=== PATIENT | male | born 1950 | race Caucasian/White ===

== ENCOUNTER → 2018-04-11 | Outpatient (CLI) | payer MEDICARE ==
--- NOTE | 2018-04-11 20:34 | CONS ---
CONSULTATION DATE OF SERVICE: 04/11/2018 68-year-old gentleman has [facility] for obstructive sleep apnea- hypopnea syndrome. HISTORY OF PRESENT ILLNESS SLEEP WAKE EVALUATION: Patient has been diagnosed with obstructive sleep apnea about 1 and half year ago in another institution by home sleep apnea test. After that, patient was started on auto PAP machine and continued to use his machine until the present time. Recently he developed some problems with his sinuses. No snoring with the machine, although. SLEEP SCHEDULE: His sleep schedule on weekdays from 11:00 p.m. to 7 a.m. and on weekends from midnight until 9:00 a.m. FALLING ASLEEP: Sometimes he has problem with falling asleep, has TV set in bedroom. DURING SLEEP: He wakes up from sleep once and may have difficulties to pay attention during the day worry about his sleep. DURING THE DAY/SLEEP WAKE EVALUATION: Has problem with concentration. [place] Sleepiness Scale is 6. PAST MEDICAL HISTORY: Positive for hypertension and depression. PAST SURGICAL HISTORY: Appendectomy. MEDICATIONS: 1. Hydrochlorothiazide. 2. Wellbutrin. SOCIAL HISTORY: Negative for smoking. Alcohol consumption occasional. FAMILY HISTORY: Hypertension, sleep apnea. REVIEW OF SYSTEMS: Sinus problems recently. PHYSICAL EXAM: GENERAL: gentleman without distress. VITAL SIGNS: BP 163/77, HR 72, RR 16, height 5 feet 11 inches, weight 268.2, body mass index 37.3, temperature 98.3, oxygen saturation at room air 95%. Oropharynx extremely low position of soft palate. Nasal septum deviation. Wide neck 16-1/2 inches in circumference. Neck: Supple, no JVD. Thyroid is not palpable. LUNGS: Clear to percussion and to auscultation. Good air exchange. No wheezing or rhonchi. HEART: S1, S2 regular. No murmurs, gallops, or rubs. ABDOMEN : Slightly obese. Soft and nontender. Bowel sounds are present. No organomegaly appreciated. EXTREMITIES No clubbing or cyanosis. SERVER ASSISTANT Awake, alert, and oriented X3. Cranial nerves 2 to 7 intact. There is no fasciculation or atrophy. noted. No focal deficits observed. I checked the patient CPAP unit. It is on automatic regimen pressure 5-20 cm of water. Average pressure 13.3 cm of water. Apnea-hypopnea index, 1.1. Ramp is on automatic regimen. IMPRESSION: 1. Obstructive sleep apnea-hypopnea syndrome. The patient is on treatment with CPAP every night. Recently developed sinus problems and awakenings from sleep. Low position of soft palate, wide neck, obstructive sleep apnea-hypopnea syndrome. 2. Obesity. 3. Hypertension. 4. Depression. 5. Status post appendectomy. PLAN: 1. I will decrease maximal pressure in machine to 13 cm of water. 2. I will change ramp to 30 minutes time. 3. We will try a different style of the mask Dream Wear full-face mask. 4. Patient will continue to use CPAP equipment every night. 5. Losing weight. 6. Sleep hygiene with regular time in bed for at least 8 hours. Thank you very much for referring this patient for consultation. Sincerely, Hugo Shultz MD, PhD, FAASM Diplomat of [place] [employer] [place] [employer] [facility] [place] MMODL / IJN: [id number] /
== END | disposition home or self-care (01) ==
LOC: SLEEP 16:34
PROVIDERS: ATTEND Internal Medicine
DX: G47.33 Obstructive sleep apnea (adult) (pediatric) (principal); J34.89 Other specified disorders of nose and nasal sinuses; J34.2 Deviated nasal septum; I10 Essential (primary) hypertension; F32.9 Major depressive disorder, single episode, unspecified; Z99.89 Dependence on other enabling machines and devices; E66.9 Obesity, unspecified; Z68.37 Body mass index [BMI] 37.0-37.9, adult; Z90.49 Acquired absence of other specified parts of digestive tract; Z83.6 Family history of other diseases of the respiratory system
CPT/HCPCS: 99211

== ENCOUNTER 2020-09-02 14:47 | Emergency (ER) | payer MEDICARE, OTHER ==
[2020-09-02 14:52] VITALS: BP 149/89; PULSE 66; RESP 18; TEMP 98.7
[2020-09-02] MEDS ORDERED: PROPARACAINE 0.5% OPHTH DROPS 15 ML BTL RIGHT EYE STA (15:19)
--- NOTE | 2020-09-02 15:19 | ED ---
Eye Problem HPI - General Chief complaint: Eye Problems Stated complaint: RT eye injury Time Seen by Provider: 09/02/20 15:06 Source: patient Mode of arrival: ambulatory Limitations: no limitations - History of Present Illness Initial comments: 70-year-old white male, alert and oriented 4, presents to the emergency room with complaints of right eye redness. Patient denies any trauma. States he woke up this morning he was fine when he went in the house today just for work he noticed that the eye was red. Patient denies any previous head injuries or eye problems or eye surgeries. Patient denies any visual changes no foreign body sensation and no loss of vision. There is no drainage there is no tearing there is no itching there is no swelling. Patient denies pain with movement of the eyeball. Patient denies nasal congestion or sinus pain. Denies any cough or vomiting. Patient was working in the garage with some minor but denies any foreign body patient has a history of hypertension and is not on any blood thinners. MD chief complaint: eye redness -: hour(s) Onset Description: sudden Location: right eye Place: home If Injury: none Eye Symptoms: other Severity scale (1-10): 0 (Subconjunctival hemorrhage) Associated Symptoms: none Treatments Prior to Arrival: none - Related Data Previous Rx's Medication Instructions Recorded Erythromycin Ophth Oint [Romycin 1 applic RIGHT EYE QID 5 Days #1 gm 09/02/20 Ophth Oint] Allergies Allergy/AdvReac Type Severity Reaction Status Date / Time latex AdvReac Unknown Verified 09/02/20 14:51 Review of Systems ROS Statement: Those systems with pertinent positive or pertinent negative responses have been documented in the HPI. ROS Other: All systems not noted in ROS Statement are negative. Past Medical History Past Medical History: No Reported History History of Any Multi-Drug Resistant Organisms: None Reported Past Surgical History: Appendectomy Past Psychological History: No Psychological Hx Reported Past Alcohol Use History: None Reported Past Drug Use History: None Reported General Exam Limitations: no limitations General appearance: alert, in no apparent distress Head exam: Present: atraumatic, normocephalic, normal inspection Eye exam: Present: PERRL, EOMI, conjunctival injection, other (Subconjunctival hemorrhage. The right eye) Pupils: Present: normal accommodation Expanded Eyelids: Normal Inspection: Bilateral Pupils: Regular, Round: Bilateral, Reactive: Bilateral Sclera/Conjunctival: Normal Inspection: Left, Hemorrhage: Right ENT exam: Present: normal exam, normal oropharynx, mucous membranes moist Neck exam: Present: normal inspection, full ROM. Absent: tenderness, meningismus, lymphadenopathy, thyromegaly Respiratory exam: Present: normal lung sounds bilaterally. Absent: respiratory distress, wheezes, rales, rhonchi, stridor Cardiovascular Exam: Present: regular rate, normal rhythm, normal heart sounds. Absent: systolic murmur, diastolic murmur, rubs, gallop, clicks GI/Abdominal exam: Present: soft, normal bowel sounds. Absent: distended, tenderness, guarding, rebound, rigid Extremities exam: Present: normal inspection, full ROM, normal capillary refill. Absent: tenderness, pedal edema, joint swelling, calf tenderness Back exam: Present: normal inspection Neurological exam: Present: alert, oriented X3, CN II-XII intact Psychiatric exam: Present: normal affect, normal mood Skin exam: Present: warm, dry, intact, normal color. Absent: rash, cyanosis, diaphoretic, petechiae Course Vital Signs 09/02/20 14:49 Temperature 98.7 F Pulse Rate 66 Respiratory 18 Rate Blood Pressure 149/89 O2 Sat by Pulse 99 Oximetry Medical Decision Making - Medical Decision Making Proparacaine with fluorescein used and there is a corneal abrasion at 3 oclock. Patient will be treated with erythromycin ophthalmic ointment half-inch 4 times a day. Patient will be referred to ophthalmology. Case discussed with Dr. Johnson who was agreeable Disposition Clinical Impression: Corneal abrasion, Subconjunctival hemorrhage of right eye Disposition: HOME SELF-CARE Condition: Good Instructions (If sedation given, give patient instructions): Abrasion (ED) Additional Instructions: Use medication as prescribed and follow-up with ophthalmology next week. Return if pain or visual disturbance. Prescriptions: Erythromycin Ophth Oint [Romycin Ophth Oint] 1 applic RIGHT EYE QID 5 Days #1 gm Is patient prescribed a controlled substance at d/c from ED?: No Referrals: Raf Neves DO [Primary Care Provider] - 1-2 days Time of Disposition: 15:58
[2020-09-02] MEDS ORDERED: FLUORESCEIN STRIPS 1 MG STRIP RIGHT EYE ONE (15:38)
== END 2020-09-02 16:09 | disposition home or self-care (01) ==
LOC: EC 14:47
DX: S05.01XA Injury of conjunctiva and corneal abrasion without foreign body, right eye, initial encounter (principal); H11.31 Conjunctival hemorrhage, right eye; I10 Essential (primary) hypertension; X58.XXXA Exposure to other specified factors, initial encounter; Y92.59 Other trade areas as the place of occurrence of the external cause; Y99.0 Civilian activity done for income or pay
CPT/HCPCS: 99283

== ENCOUNTER → 2022-11-27 | Outpatient (CLI) | payer OTHER, MEDICARE | END | disposition home or self-care (01) | LOC: LABPAT 10:27 | DX: Z01.812 Encounter for preprocedural laboratory examination (principal); Z22.322 Carrier or suspected carrier of Methicillin resistant Staphylococcus aureus; M17.11 Unilateral primary osteoarthritis, right knee | CPT/HCPCS: 87070 ==

== ENCOUNTER 2022-12-12 08:54 | Day surgery (SDC) | payer OTHER ==
[2022-12-06 11:16] VITALS: BMI 29.1
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
[~2022-12-12 08:54] MED LIST: ACETAMINOPHEN TAB 500 MG TAB PO PRN; MELOXICAM 7.5 MG TAB PO PRN; TRANEXAMIC 1,000 MG/100ML-NACL 1,000 MG in SALINE 1 100ML.BAG IVPB PRN
[2022-12-12] MEDS ORDERED: droPERidol 5 MG/2 ML VIAL IVP ONE (09:36)
[2022-12-12] MEDS ORDERED: LACTATED RINGERS 1,000 ML IV SCH (09:36)
[2022-12-12] MEDS ORDERED: ONDANSETRON 4 MG/2 ML VIAL IVP ONE (09:36)
[2022-12-12] MEDS ORDERED: HYDROmorphone 0.5 MG/0.5 ML SYRINGE IVP PRN ×2 (09:36→12:53)
[2022-12-12] MEDS ORDERED: LIDOCAINE 1% (10MG/ML) FOR IV START INTRADERMA PRN (09:36)
[2022-12-12] MEDS: DEXAMETHASONE SOD PHOSPHATE 4 MG/ML 1 ML VIAL IV ONE ×2 (09:56→10:15)
[2022-12-12] MEDS ORDERED: fentaNYL (PF) 50 MCG/ML 2 ML AMP IVP ONE ×2 (10:12→10:13)
[2022-12-12] MEDS ORDERED: MIDAZOLAM 2 MG/2 ML VIAL IVP ONE ×2 (10:12→10:13)
--- NOTE | 2022-12-12 10:50 | P.ANPRN ---
Procedure Note - Anesthesia - Nerve Block Performed Right Adductor Canal Infusion Time Out Performed: Yes (1017) Date of Procedure: 12/12/22 Procedure Start Time: :18 Procedure Stop Time: :24 Location of Patient: PreOp Indication: Acute Post-Operative Pain, Requested by Surgeon Specifically requested for management of pain by : Sergio Jason Sedation Type: Sedate with meaningful contact maintained Preparation: Sterile Prep, Sterile Dressing Position: Supine Catheter Depth at Skin (cm): 6 Catheter: Indwelling Needle Types: Pajunk Needle Gauge: 18 Ultrasound used to visualize needle placement: Yes Ultrasound used to observe medication spread: Yes Injectate: 0.5% Ropivacaine (see comment for volume) (15cc + 10cc nacl pf) Blood Aspirated: No Pain Paresthesia on Injection Noted: No Resistance on Injection: Normal Image Stored and Saved: Yes Events: Uneventful and Well Tolerated
--- NOTE | 2022-12-12 10:51 | P.ANPRN ---
Procedure Note - Anesthesia - Nerve Block Performed Right iPack Single Time Out Performed: Yes (1017) Date of Procedure: 12/12/22 Procedure Start Time: 10:25 Procedure Stop Time: 10:30 Location of Patient: PreOp Indication: Acute Post-Operative Pain, Requested by Surgeon Specifically requested for management of pain by DrShilo: Sergio Jason Sedation Type: Sedate with meaningful contact maintained Preparation: Sterile Prep Position: Supine Catheter: None Needle Types: Pajunk Needle Gauge: 21 Ultrasound used to visualize needle placement: Yes Ultrasound used to observe medication spread: Yes Injectate: 0.5% Ropivacaine (see comment for volume) (15cc + 10cc nacl pf) Blood Aspirated: No Pain Paresthesia on Injection Noted: No Resistance on Injection: Normal Image Stored and Saved: Yes Events: Uneventful and Well Tolerated
[2022-12-12] MEDS ORDERED: TRANEXAMIC 1,000 MG/100ML-NACL PREMIX BAG ONE (11:15)
[2022-12-12] MEDS ORDERED: ROPIVACAINE 5 MG/ML 30 ML VIAL ONE (11:15)
[2022-12-12] MEDS ORDERED: PROPOFOL 10 MG/ML 20 ML VIAL IV ONE (11:15)
[2022-12-12] MEDS ORDERED: MIDAZOLAM 2 MG/2 ML VIAL ONE (11:15)
[2022-12-12] MEDS ORDERED: fentaNYL (PF) 50 MCG/ML 2 ML AMP ONE (11:15)
[2022-12-12] MEDS ORDERED: ceFAZolin 3,000 MG in SODIUM CHLORIDE 0.9% IRRIGATIO 3,000 ML IRRIGATION ONE (11:44)
[2022-12-12] MEDS ORDERED: LACTATED RINGERS 1,000 ML IV ONE (12:30)
[2022-12-12] MEDS ORDERED: MAGNESIUM HYDROXIDE 2,400 MG/30 ML CUP PO PRN (12:53)
[2022-12-12] MEDS ORDERED: HYDROcodone/APAP 5-325MG 1 EACH TAB PO PRN (12:53)
[2022-12-12] MEDS ORDERED: NALOXONE 0.4 MG/ML 1 ML VIAL IV PRN (12:53)
--- NOTE | 2022-12-12 13:20 | P.OP ---
Date of Procedure: 12/12/22 Preoperative Diagnosis: Right knee severe tricompartmental osteoarthrosis Postoperative Diagnosis: Same Procedure(s) Performed: Right total knee arthroplastycementedposterior stabilized Implants: Depuy Attune size 7 cemented femoral component, size 7 cemented tibial component, 9 mm articular surface, 38 mm cemented patellar component. This is a posterior stabilized implant. Anesthesia: regional, spinal Surgeon: Sergio Jason Test Data Developer #1: Hu Gardner Estimated Blood Loss (ml): 50 Pathology: none sent Condition: stable Disposition: PACU Indications for Procedure: The patient is a 72-year-old male who presents with progressive right knee pain secondary to osteoarthrosis despite conservative measures. A discussion of the risks and benefits of operative intervention versus continued conservative measures was made with the patient. He opted to proceed with surgery. Operative risks to include infection, neurovascular injury, development of blood clots, fracture, possible component loosening/failure and need for subsequent procedures was discussed. Informed consent was obtained. Operative Findings: As below Description of Procedure: The patient was brought to the operating room, and after induction of spinal anesthesia the right lower extremity was prepped and draped in a normal fashion. The tourniquet was inflated to 270 mm marker. A longitudinal incision extending 3 finger breaths above the superior pole of patella extending to the medial aspect the tibial tubercle was then made. The skin and subcutaneous tissues were divided sharply. Electrocautery was used for hemostasis. A medial parapatellar arthrotomy was performed. The medial soft tissues to include the superficial and deep portions of the medial collateral ligament were elevated subperiosteally. The patella was everted. A portion of the retropatellar fat pad was excised sharply. The anterior cruciate ligament was sacrificed. Blunt retractors were placed. A starting hole was made in the distal femur 1 cm anterior to the posterior cruciate ligament origin. An intramedullary femoral guide was then inserted planning on 5 valgus distal cut with 9 mm distal resection. The cutting block was pinned in place. The distal cut was then made. The posterior referencing sizing guide was utilized. I felt size 7 was most appropriate. 3 of external rotation was built into the system and verified off the trans-epicondylar axis and the posterior condyles. The cutting block was pinned in place. The anterior, posterior, and chamfer cuts then made. Bone fragments were removed. The intercondylar guide was placed and the notch cut was made with a sagittal saw. The bone block was removed in one fragment. The trial component was then placed. There is good anterior to posterior and medial to lateral fit. The distal peg holes were drilled. The trial component was removed. Attention was then paid towards preparing the proximal tibia. An extra medullary guide was utilized in line with the tibial shaft and second metatarsal distally. I planned on 2 mm resection from the medial compartment. The cutting block was pinned in place. The proximal tibial cut was then made. The bone was removed in one fragment. The remnants of the medial and lateral menisci were excised at the capsular junction with electrocautery. The tibia sized most appropriately at size 7. The trial femoral and tibial components were placed along with a 9 mm articular surface. I was able to obtain full flexion and extension with internal and external rotation. After several fl exion and extension cycles, the tibial rotation was marked with electrocautery line with the medial one third of the tibial tubercle. Attention was then paid towards preparing the patella. A patella reamer was utilized planning on 14 mm of residual bone stock. A good flush cut was made. The patella sized most appropriately 38 mm. The peg holes were drilled. The trial components placed. I had good patellofemoral tracking with no hands technique. The trial components were then removed. The tibia was prepared in the appropriate rotation with appropriate drill and keel punch. The posterior osteophytes were removed with a curved osteotome. The flexion and extension gaps were checked and felt to be symmetric at 9 mm. A trial components were then removed. The bony surfaces were prepared with pulsatile lavage and dried. The tibial component was then cemented place was fully seated. Excess cement was removed. The femoral component cemented place and was fully seated. Excess cement was removed. The trial 9 mm articular surface was placed and the knee was put in full extension. The patella component was cemented place. After the cement had sufficiently hardened, the knee was again taken through a range of motion. Again I was able to obtain full flexion and extension with varus and valgus stress. The trial 9 mm articular surface was removed and the final one insert ed. This was fully seated. Care was taken to avoid any soft tissue interposition. Pulsatile lavage was again utilized. The medial parapatellar arthrotomy was closed with #2 Ethibond suture. The tourniquet was deflated with approximately 60 minutes total tourniquet time. Final hemostasis was obtained with the cautery. There was minimal bleeding therefore a deep drain was not placed. The subcutaneous tissues were reapproximated with interrupted 2-0 Vicryl sutures. The skin was reapproximated with 3-0 subcuticular strata fix suture. Skin tape and adhesive was applied. A sterile dressing was applied. The patient was awoken from sedation and transferred to recovery room in good condition. Blood loss was estimated at 50 mL. No complications were incurred. Sponge and needle counts were correct at the end of the case. Hu BOLDEN assisted during the major components of this case to include exposure, bone resection, implantation, and closure.
[2022-12-12] MEDS ORDERED: ROPIVACAINE 1,100 MG, SODIUM CHLORIDE 0.9% 500 ML 330 ML, EMPTY PAIN BALL 1 EACH MISCELLANE PRN ×2 (13:25)
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
[2022-12-12] MEDS: HYDROcodone/APAP 7.5-325MG 1 EACH TAB PO PRN ×2 (16:46→22:45)
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
[2022-12-12] MEDS: buPROPion 75 MG TAB PO SCH (20:35)
[2022-12-12] MEDS ORDERED: SENNOSIDES-DOCUSATE SODIUM 1 EACH TAB PO SCH (21:00)
[2022-12-13] MEDS: HYDROmorphone 0.5 MG/0.5 ML SYRINGE IVP PRN ×2 (00:30→03:57)
[2022-12-13] MEDS: hydrOXYzine pamoate 25 MG CAP PO PRN ×3 (00:30→14:43)
--- NOTE | 2022-12-13 06:25 | P.PN ---
Progress Note - Text Progress Note Date: 12/13/22 (0616) Anesthesiology Postop day 1 status post total knee arthroplasty with adductor canal catheter. Patient doing well. VAS 6 out of 10. Gross strength intact in lower extremity. Afebrile. Denies alterations in sensorium. Catheter site intact. Heart regular rate Lungs nonlabored Abdomen nondistended Assessment: Postop day 1 status post total knee arthroplasty with adductor canal catheter Plan: 1.All questions answered. Maintain catheter 2 more days with patient removal at home. Instructions to be given at discharge. 2.This note was dictated using [employer] software. Please be advised there is a potential for misspellings or errors in carton forming machine adjuster.
[2022-12-13 07:56] LABS: African American GFR (CKD) >90 (>60 ml/min/1.73 sqM); Anion Gap 5 mmol/L; Blood Urea Nitrogen 21 mg/dL (9-20); Calcium 7.9 mg/dL (8.4-10.2); Carbon Dioxide 26 mmol/L (22-30); Chloride 104 mmol/L (98-107); Glucose 131 mg/dL (74-99); Non-African American GFR(CKD) >90 (>60 ml/min/1.73 sqM); Potassium 3.8 mmol/L (3.5-5.1); Sodium 135 mmol/L (137-145)
[2022-12-13 08:16] VITALS: BP 116/66; PULSE 91; RESP 18; TEMP 97.8
[2022-12-13] MEDS: HYDROcodone/APAP 7.5-325MG 1 EACH TAB PO PRN ×2 (08:36→12:45)
[2022-12-13] MEDS: buPROPion 75 MG TAB PO SCH (08:37)
[2022-12-13] MEDS ORDERED: RIVAROXABAN 10 MG TAB PO SCH (09:00)
[2022-12-13] MEDS ORDERED: hydroCHLOROthiazide 12.5 MG CAP PO SCH (09:00)
[2022-12-13] MEDS ORDERED: NON FORMULARY DRUG (Omega-3 Fatty Acids [Omega-3] 1,000 MG Capsule) PO SCH (09:00)
[2022-12-13] MEDS ORDERED: MULTIVITAMINS, THERA 1 EACH TAB PO SCH (09:00)
[2022-12-13] MEDS ORDERED: DOXAZOSIN 2 MG TAB PO SCH (09:00)
[2022-12-13] MEDS ORDERED: CALCIUM CARB-VIT D 500 MG-5 MCG TAB PO SCH (09:00)
[2022-12-13] MEDS ORDERED: ASCORBIC ACID 500 MG TAB PO SCH (09:00)
--- NOTE | 2022-12-13 09:44 | P.DS ---
Providers Date of admission: 12/12/2022 Expected date of discharge: 12/13/22 Attending physician: Sergio Jason Consults: 12/12/22 12:53 Consult Physician Routine Consulting Provider: Clemencia Bangura Consult Reason/Comments: medical management s/p right total knee arthroplasty Do you want consulting provider notified?: Yes Primary care physician: [facility] Hospital Course: Date of admission: 12/12/2022 Date of discharge: 12/13/2022 Admission diagnosis: Right knee osteoarthritis Discharge diagnosis: Same Attending physician: Dr. Jason Surgical procedures: Right total knee arthroplasty Brief history: Patient is a 72-year-old male with a history of progressive primary right knee osteoarthritis. At this point patient has failed conservative treatment measures and has opted to proceed with a elective right total knee arthroplasty. Hospital course: Details of patient's surgery can be found in operative report. Patient tolerated the procedure well and was subsequently transported to orthopedic floor. Patient's orthopeidc and medical care was provided daily. Patient had daily laboratory tests performed for evaluation of overall blood counts. Patient had daily physical therapy to include strengthening range of motion as well as education with walker ambulation. Patient was treated with Xarelto for their postoperative DVT prophylaxis during their inpatient stay. Patient was noted to have a relatively uneventful postoperative course. Patient reported satisfactory pain control with oral pain medications by postoperative day 1. Patient showed satisfactory progress with physical therapy. Patient moved steadily through the program and had no difficulty meeting the goals by postoperative day 1. Given patient's otherwise satisfactory course and having met physical therapy goals, plan is to discharge patient home with health services on postoperative day 1. Discharge condition/disposition: Patient will be discharged home without servi emanuel in stable condition. Discharge medications: Instructions are given on resumption of patient's normal daily medications per primary care recommendation, in addition patient will be prescribed [place]; senna; eliquis 2.5 mg BID x 2 weeks. Discharge instructions: 1. Wound care and infection precautions, keep incision dry and covered while showering, no lotions, creams, moisturizers. No soaking, tubs, pools, hottubs. Do not scrub over the incision. 2. Weight-bear as tolerated with walker / cane until follow-up. 3. Ice and elevate when necessary. Do not exceed 20 minutes per hour with ice pack. 4. Utilize compression sleeve until seen at first follow up appointment. 5. Visiting nursing care. 6. Home physical therapy including home CPM. 7. Pain meds and anticoagulants per prescription. 8. Pain medication has potential to cause constipation. Increase oral fluid and fiber intake. Contact primary care provider if you have not had a bowel movement within 48 hours after discharge 9. No anti-inflammatory medication until discussed at first post operative visit, this including Motrin, Aleve, Mobic, Diclofenac. 10. Follow up in office at 2 weeks postop with Osmin Short PA-C / Hu Gardner PA-C 11. Follow up with your primary care doctor 7-10 days after discharge. 12. Contact [facility] with any questions, . Assessment: Right knee osteoarthritis Procedures: Right total knee arthroplasty Patient Condition at Discharge: Good Plan - Discharge Summary Discharge Rx Participant: Yes New Discharge Prescriptions: New Apixaban [Eliquis] 2.5 mg PO BID #60 tab HYDROcodone/APAP 7.5-325MG [[place] 7.5] 1 - 2 each PO Q6HR PRN #36 tab PRN Reason: Pain Sennosides/Docusate Sodium [Senna Plus 8.6-50 mg Softgel] 1 each PO DAILY #20 capsule Continue Multivitamins, Thera [Multivitamin (formulary)] 1 tab PO DAILY buPROPion [Wellbutrin] 75 mg PO BID Doxazosin [Cardura] 2 mg PO DAILY hydroCHLOROthiazide 12.5 mg PO DAILY Farrell-3 Fatty Acids [Farrell-3] 1,000 mg PO DAILY Calcium Carb-Vit D 250Mg-125Un [Oscal 250+D 3.125 Mcg (125 Iu)] 1 each PO DAILY Ascorbic Acid [Vitamin C] 1,000 mg PO DAILY No Action Naproxen 250 mg PO Q6H PRN PRN Reason: Pain Discharge Medication List Ascorbic Acid [Vitamin C] 1,000 mg PO DAILY 12/06/22 [History] Calcium Carb-Vit D 250Mg-125Un [Oscal 250+D 3.125 Mcg (125 Iu)] 1 each PO DAILY 12/06/22 [History] Doxazosin [Cardura] 2 mg PO DAILY 12/06/22 [History] Multivitamins, Thera [Multivitamin (formulary)] 1 tab PO DAILY 12/06/22 [History] Naproxen 250 mg PO Q6H PRN 12/06/22 [History] Farrell-3 Fatty Acids [Farrell-3] 1,000 mg PO DAILY 12/06/22 [History] buPROPion [Wellbutrin] 75 mg PO BID 12/06/22 [History] hydroCHLOROthiazide 12.5 mg PO DAILY 12/06/22 [History] Apixaban [Eliquis] 2.5 mg PO BID #60 tab 12/13/22 [Rx] HYDROcodone/APAP 7.5-325MG [[place] 7.5] 1 - 2 each PO Q6HR PRN #36 tab 12/13/22 [Rx] Sennosides/Docusate Sodium [Senna Plus 8.6-50 mg Softgel] 1 each PO DAILY #20 capsule 12/13/22 [Rx] Follow up Appointment(s)/Referral(s): Hu Gardner, YAZAN [PHYSICIAN [employer]FETERIA TEAM LEADER] - 2 Weeks Patient Instructions/Handouts: Knee Replacement (DC) Activity/Diet/Wound Care/Special Instructions: Orthopedic Discharge Instructions: 1. Wound care and infection precautions, keep incision dry and covered while showering, no lotions, creams, moisturizers. No soaking, pools, hot tubs. Do not scrub over incision. 2. Weight-bear as tolerated with walker / cane until follow-up. 3. Ice and elevate when necessary. Do not exceed 20 minutes per hour with ice pack. 4. Utilize compression sleeve until seen at first follow up appointment. 5. Pain meds and anticoagulants per prescription. 6. Pain medication has potential to cause constipation. Increase oral fluid and fiber intake. Contact primary care provider if you have not had a bowel movement within 48 hours after discharge. 7. No anti-inflammatory medication until discussed at first post operative visit, this including Motrin, Aleve, Mobic, Diclofenac. 8. Follow up in office at 2 weeks postop with Osmin Short PA-C / Hu Gardner PA-C 9. Follow up with your primary care doctor 7-10 days after discharge. 10. Contact [facility] with any questions, . Keep incision clean, dry, intact. While showering, cover fusion tape with Saran wrap. Keep fusion tape on until follow-up appointment in office in 2 weeks. Discharge Disposition: HOME WITH HOME HEALTH SERVICES
--- NOTE | 2022-12-13 09:55 | P.PN ---
Subjective Progress Note Date: 12/13/22 Principal diagnosis: Right knee osteoarthritis Patient seen at bedside this morning sitting up in chair icing his right knee. Patient says he is doing well this morning. Patient says he has been up walking around the room using walker and has urinated several times. Patient says he has not had a bowel movement yet, however, patient says he has been passing gas. Patient says he is looking forward to going home later today. Patient is eager to work with physical therapy later this morning. Patient denies any other changes. Patient denies chest pain, fever, shortness breath, nausea, change in vision, loss of bowel/bladder control. Objective - Vital Signs Vital signs: Vital Signs Temp 97.8 F 12/13/22 07:01 Pulse 91 12/13/22 07:01 Resp 18 12/13/22 07:01 BP 116/66 12/13/22 07:01 Pulse Ox 94 L 12/13/22 07:01 FiO2 Intake & Output 12/12/22 12/13/22 12/13/22 18:59 06:59 18:59 Intake Total 751 Output Total 50 Balance 701 Weight 107 kg Intake: IV 751 Output: Estimated Blood Loss 50 Other: Voiding Method Toilet # Voids 1 2 # Bowel Movements 1 - Exam Right knee: Incision is clean, dry, and intact. The exofin fusion tape is in good condition. There is minimal soft tissue swelling and ecchymosis surrounding the medial and lateral aspects of the incision. Calf is soft, no tenderness with palpation. Plantar flexion, dorsiflexion, EHL, FHL are intact. Sensory exam to light touch throughout the extremity is intact, dorsal pedis pulses 2+. - Labs CBC & Chem 7: 12/13/22 06:48 Labs: Abnormal Lab Results - Last 24 Hours (Table) 12/13/22 Range/Units 06:48 Sodium 135 L (137-145) mmol/L BUN 21 H (9-20) mg/dL Glucose 131 H (74-99) mg/dL Calcium 7.9 L (8.4-10.2) mg/dL Assessment and Plan Assessment: Right knee osteoarthritis - Postop day 1 status post right total knee arthroplasty Plan: 1. Right knee osteoarthritis - right total knee arthroplasty performed yesterday, 12/12/2022. Patient stable at bedside this morning. Patient does have a walker at home. Plan for discharge home today with health services pending PT/OT evaluation. 2. Appreciate medical management 3. Pain management - [place] 4. DVT prophylaxis - eliquis 2.5 mg BID x 2 weeks once home 5. GI prophylaxis - senna 6. PT/OT - weightbearing as tolerated with walker 7. Encourage incentive spirometer use 8. Discharge planning - discharge home today with health services Time with Patient: Less than 30
--- NOTE | 2022-12-13 11:01 | P.PN ---
Subjective Progress Note Date: 12/13/22 Subjective: Patient seen and examined at bedside. No acute events overnight. He is able to ambulate using a walker. Pertinent positives and negatives as discussed above, a complete review of systems was performed and all other systems are negative. Vitals Signs Reviewed. General: nontoxic, no distress, appears at stated age Derm: warm, dry, right knee dressing clean, dry, intact Head: atraumatic, normocephalic, symmetric Eyes: EOMI, no lid lag, anicteric sclera, pupils equal round reactive to light ENT: Nose and ears atraumatic Neck: No thyromegaly, supple Mouth: no lip lesion, mucus membranes moist Cardiovascular: S1S2 reg, no murmur, no edema Lungs: clear to auscultation bilateral, no rhonchi, no rales, no wheeze, no accessory muscle use Abdominal: soft, nontender to palpation, no guarding, no appreciable organomegaly Ext: no gross muscle atrophy, muscle strength muscle strength 5 out of 5 in all 4 extremities, no contractures Neuro: CN II-XII grossly intact Psych: Alert, oriented, appropriate affect Data Reviewed Today: Pertinent Labs: CBC still pending, will be reviewed when available, sodium 135, potassium 3.8, creatinine 0.74 Imaging: No new imaging Assessment and Plan: Status post right total knee arthroplasty Hypertension BPH depression -Pain control with oral [place] as needed, IV Dilaudid as needed -Eliquis for DVT prophylaxis -Home medications continued Patient is medically optimized for discharge home Thank you for allowing us to participate in the care of this pleasant patient. Do not hesitate to contact us with questions. Someone can be reached from the [facility] hospitalist group all hours of the day at [phone] or via perfect serve. Objective - Vital Signs Vital signs: Vital Signs Temp 97.8 F 12/13/22 07:01 Pulse 91 12/13/22 07:01 Resp 18 12/13/22 07:01 BP 116/66 12/13/22 07:01 Pulse Ox 94 L 12/13/22 07:01 FiO2 Intake & Output 12/12/22 12/13/22 12/13/22 18:59 06:59 18:59 Intake Total 751 Output Total 50 Balance 701 Weight 107 kg Intake: IV 751 Output: Estimated Blood Loss 50 Other: Voiding Method Toilet # Voids 1 2 # Bowel Movements 1 - Labs CBC & Chem 7: 12/13/22 06:48 Labs: Abnormal Lab Results - Last 24 Hours (Table) 12/13/22 Range/Units 06:48 Sodium 135 L (137-145) mmol/L BUN 21 H (9-20) mg/dL Glucose 131 H (74-99) mg/dL Calcium 7.9 L (8.4-10.2) mg/dL
[2022-12-13 11:18] LABS: Basophils # (A) 0.02 X 10*3/uL (0.00-0.10); Basophils % (A) 0.2 %; Eosinophils # (A) 0.02 X 10*3/uL (0.04-0.35); Eosinophils % (A) 0.2 %; HCT 35.2 % (39.6-50.0); HGB 11.9 d/dL (13.0-17.0); Lymphocytes # (A) 1.85 X 10*3/uL (0.90-5.00); Lymphocytes % (A) 20.9 %; MCH 29.8 pg (27.0-32.0); MCHC 33.8 d/dL (32.0-37.0); Monocytes # (A) 1.03 X 10*3/uL (0.20-1.00); Monocytes % (A) 11.6 %; NRBC Per 100 WBC 0 X 10*3/uL (0.00-0.01); Neutrophils # (A) 5.91 X 10*3/uL (1.80-7.70); Neutrophils % (A) 66.9 %; Platelet Count 164 X 10*3/uL (140-440); RDW 13.8 % (11.5-14.5); WBC 8.85 X 10*3/uL (4.50-10.00)
== END 2022-12-13 15:01 | disposition home health service (06) ==
LOC: OR 08:54 → 4SSUR 13:15 → OR 12-13 15:01
PROVIDERS: ATTEND Orthopaedic Surgery
DX: M17.11 Unilateral primary osteoarthritis, right knee (principal); G89.18 Other acute postprocedural pain; I48.19 Other persistent atrial fibrillation; I10 Essential (primary) hypertension; G47.33 Obstructive sleep apnea (adult) (pediatric); Z90.49 Acquired absence of other specified parts of digestive tract; Z87.891 Personal history of nicotine dependence; Z79.899 Other long term (current) drug therapy
CPT/HCPCS: 97162; 64999; 64448; 80048; 85025; 73560; 27447; C1713 ×2; C1776; C1751; J2250; J1100; J0690 ×3; J2405; J3010; J2795; J1170 ×2

== ENCOUNTER → 2024-02-06 | Outpatient (CLI) | payer MEDICARE ==
[2024-02-06 16:18] LABS: Basophils # (A) 0.04 X 10*3/uL (0.00-0.10); Basophils % (A) 0.8 %; Eosinophils # (A) 0.04 X 10*3/uL (0.04-0.35); Eosinophils % (A) 0.8 %; HCT 45.5 % (39.6-50.0); HGB 15.7 g/dL (13.0-17.0); Lymphocytes # (A) 1.96 X 10*3/uL (0.90-5.00); Lymphocytes % (A) 38.7 %; MCH 29.9 pg (27.0-32.0); MCHC 34.5 g/dL (32.0-37.0); MCV 86.7 FL (80.0-97.0); Mean Platelet Volume 11.9 FL (9.5-12.2); Monocytes # (A) 0.45 X 10*3/uL (0.20-1.00); Monocytes % (A) 8.9 %; NRBC Per 100 WBC 0 X 10*3/uL (0.00-0.01); Neutrophils # (A) 2.57 X 10*3/uL (1.80-7.70); Neutrophils % (A) 50.6 %; Platelet Count 185 X 10*3/uL (140-440); RBC 5.25 X 10*6/uL (4.40-5.60); RDW 12.9 % (11.5-14.5); WBC 5.07 X 10*3/uL (4.50-10.00)
[2024-02-06 16:28] LABS: Rheumatoid Factor, Qnt 15 IU/mL (0-15)
[2024-02-06 16:30] LABS: Erythrocyte Sedimentation Rate 16 mm/Hr (0-20)
[2024-02-07 04:26] LABS: Toxoplasma Antibody (IgG) 46.5 IU/mL (<7.2); Toxoplasma Antibody (IgM) <3.0 AU/mL (<8.0)
[2024-02-07 09:00] LABS: Angiotensin-1 Converting Enz. 58 U/L (8-52)
[2024-02-07 09:40] LABS: HLA B27 NEGATIVE
== END | disposition home or self-care (01) ==
LOC: LABWHC1 11:14
PROVIDERS: ATTEND Ophthalmology
CPT/HCPCS: 36415; 82164; 85025; 85549; 85652; 86038; 86431; 86480; 86592; 86618; 86777; 86778; 86780; 86812

== ENCOUNTER → 2024-07-14 | Outpatient (CLI) | payer MEDICARE ==
--- NOTE | 2024-07-15 22:50 | P.PCN ---
Date of Procedure: 07/14/24 Operative Findings: Home sleep study testing Date of service is 07/14/2024 Pertinent history 74-year-old male patient with known history of obstructive sleep apnea neurology on diagnosis was done many years back through an outside sleep center. The patient has been given CPAP therapy which she used for many years. As his machine got old, the patient started using his mother's CPAP units. Note that his mother also has obstructive sleep apnea and she and the patient was able to use her machine. He has a Dream[employer]ear medium size fullface mask. I checked the patient's compliance data from his CPAP unit and the patient has been extremely compliant using the machine 100% of the time averaging around 7.5 hours of CPAP therapy per night. His 95th percentile pressure was at 10.8 and his AHI while on treatment was down to 0 point. His machine is set at a pressure of 5/18 cm of water, APAP mode. More recently, the patient lost concern amount of weight in his body mass index was down to 31.1. Based on this history, we decided to proceed with a home sleep study to reevaluate the presenc e and severity of sleep apnea and decide if ongoing treatment is needed. Comorbidities include hypertension and BPH. Physical findings Weight is 229 and a body mass index is 31.3 Technical description This is a type III home sleep study. The [employer] system was used to complete his home sleep study. The total recording duration was 9 hours and 18 minutes. The study started 12:23 AM and ended at 9:42 AM. There was a total of 6 hours and 24 minutes of flow monitoring and 7 hours and 37 minutes of oxygen saturation monitoring. Results Respiratory analysis showed a total of 14 obstructive apneas and 18 obstructive hypopneas. The resulting AHI was 5.0. Oxygenation analysis The patient had a baseline pulse ox of 94% on room air oxygen. Average pulse ox during sleep was 93% and the patient's minimum pulse ox was 78%. The patient spent approximately 7 minutes of sleep time below pulse ox of 89% Cardiac summary Average heart rate was 54 with minimum heart rate of 40 and a maximum heart rate of 102 Assessment Mild MIGUEL with an AHI of 5 APAP therapy pressures of 5/18 cm of water Hypertension BPH Weight loss with a current body mass index of 31.3 Plan This is a case of very mild obstructive sleep apnea. The patient has no significant nocturnal oxygen desaturation. AHI is only at 5. The patient can still utilize his APAP machine as long as seeing clinical benefit. Encouraged further weight loss as the patient may completely recovered from his obstructive sleep apnea if he is able to lose further weight. Maintain good sleep hygiene measures. Maintain regular sleep schedule. Follow-up with me in the office.
== END ==
LOC: 3 N SLEEP 12:57
PROVIDERS: ATTEND Internal Medicine Critical Care Medicine
DX: G47.33 Obstructive sleep apnea (adult) (pediatric) (principal); I10 Essential (primary) hypertension; N40.0 Benign prostatic hyperplasia without lower urinary tract symptoms; Z68.31 Body mass index [BMI] 31.0-31.9, adult; Z91.040 Latex allergy status; Z87.891 Personal history of nicotine dependence

== ENCOUNTER 2024-10-30 21:52 | Emergency (ER) | payer MEDICARE, OTHER ==
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
[2024-10-30] MEDS: LIDOCAINE 1% INJ 10MG/ML (20 ML MDV) SQ ONE (23:03)
[2024-10-30] MEDS: DIPH,PERTUS(ACELL)TETVAC-LF 0.5 ML VIAL IM ONE (23:03)
[2024-10-30 23:59] VITALS: BP 133/75; PULSE 79; RESP 18; TEMP 97.8
== END 2024-10-31 00:40 | disposition home or self-care (01) ==
LOC: EC 21:52
DX: S61.216A Laceration without foreign body of right little finger without damage to nail, initial encounter (principal); Z87.891 Personal history of nicotine dependence; Z91.040 Latex allergy status; Z23 Encounter for immunization; W25.XXXA Contact with sharp glass, initial encounter; Y99.0 Civilian activity done for income or pay
CPT/HCPCS: 12002; 90471; 90715; 99282